=== PATIENT | male | born 1980 | race Caucasian/White ===

== ENCOUNTER 2016-04-07 23:34 | Emergency (ER) | payer SELFPAY ==
[~2016-04-07] VITALS: Ht 172.7 cm; Wt 83.9 kg
[~2016-04-07 23:34] MED LIST: PENICILLIN; VICODINE
[2016-04-07 23:52] VITALS: BP 140/88
--- NOTE | 2016-04-08 00:07 | NUR ---
PT TAKEN TO BED 5
--- NOTE | 2016-04-08 00:28 | NUR ---
36Y/M PATIENT BIB FAMILY TO ED WITH C/O TOOTHACHE X1HR. PATIENT STATES NAUSEA DENIES V/D; SKIN IS PINK/WARM/DRY; AAOX4 WITH EVEN AND STEADY GAIT; LUNGS CLEAR BL; HR EVEN AND REGULAR; PT DENIES ANY FEVER, CP, SOB, OR COUGH AT THIS TIME; PATIENT STATES PAIN OF 10/10 AT THIS TIME; VSS; PATIENT POSITIONED FOR COMFORT; HOB ELEVATED; BEDRAILS UP X2; BED DOWN. ER MD MADE AWARE OF PT STATUS.
[2016-04-08] MEDS ORDERED: ACETAMINOPHEN/CODEINE 300/30MG 1 TAB PO ONE (00:55)
[2016-04-08] MEDS ORDERED: AMOXICILLIN 500 MG CAP PO ONE (00:55)
[2016-04-08 01:12] VITALS: BP 137/77
--- NOTE | 2016-04-08 01:12 | NUR ---
Patient discharged with v/s stable. Written and verbal after care instructions given and explained. Patient alert, oriented and verbalized understanding of instructions. Ambulatory with steady gait. All questions addressed prior to discharge. ID band removed. Patient advised to follow up with PMD. Rx of Amoxicillin and Tylenol #3 given. Patient educated on indication of medication including possible reaction and side effects. Opportunity to ask questions provided and answered.
== END 2016-04-08 01:12 | disposition home or self-care (01) ==
LOC: MED 23:34 → EDSEX 23:34 → MED 04-08 01:12
DX: K04.7 Periapical abscess without sinus (principal); R03.0 Elevated blood-pressure reading, without diagnosis of hypertension; F17.210 Nicotine dependence, cigarettes, uncomplicated; Z88.8 Allergy status to other drugs, medicaments and biological substances

== ENCOUNTER 2016-04-18 08:52 | Emergency (ER) | payer SELFPAY ==
[~2016-04-18] VITALS: Ht 172.7 cm; Wt 81.6 kg
[2016-04-18 09:00] VITALS: BP 130/73
[2016-04-18] MEDS ORDERED: ONDANSETRON 4 MG ODT PO ONE (09:10)
[2016-04-18] MEDS ORDERED: KETOROLAC 60 MG/2 ML VIAL IM ONE (09:10)
--- NOTE | 2016-04-18 09:14 | NUR ---
PT STATES NECK PAIN WITH NAUSEA . DENIES V/D; SKIN IS PINK/WARM/DRY; AAOX4 WITH EVEN AND STEADY GAIT; LUNGS CLEAR BL; HR EVEN AND REGULAR; PT DENIES ANY FEVER, CP, SOB, OR COUGH AT THIS TIME; PATIENT STATES PAIN OF 7/10 AT THIS TIME; VSS; PATIENT POSITIONED FOR COMFORT; HOB ELEVATED; BEDRAILS UP X2; BED DOWN. ER DR. KELLER AT BEDSIDE.
--- NOTE | 2016-04-18 09:20 | NUR ---
PATIENT OFFERED TORIDOL INJECTION BY DR KELLER, PATIENT DECLINED STATING HE DID NOT WANT A SHOT
[2016-04-18 09:27] VITALS: BP 130/73
--- NOTE | 2016-04-18 09:28 | NUR ---
Patient discharged with v/s stable. Written and verbal after care instructions given and explained. Patient alert, oriented and verbalized understanding of instructions. Ambulatory with steady gait. All questions addressed prior to discharge. ID band removed. Patient advised to follow up with PMD. Rx of ZOFRAN AND MOTRIN given. Patient educated on indication of medication including possible reaction and side effects. Opportunity to ask questions provided and answered.
== END 2016-04-18 09:28 | disposition home or self-care (01) ==
LOC: MED 08:58
DX: I88.9 Nonspecific lymphadenitis, unspecified (principal); R11.2 Nausea with vomiting, unspecified; F17.200 Nicotine dependence, unspecified, uncomplicated; Z88.8 Allergy status to other drugs, medicaments and biological substances
CPT/HCPCS: 99283; S0119

== ENCOUNTER 2016-04-30 08:52 | Emergency (ER) | payer SELFPAY ==
[~2016-04-30] VITALS: Ht 172.7 cm; Wt 81.6 kg
[2016-04-30 09:18] VITALS: BP 122/82
--- NOTE | 2016-04-30 09:25 | NUR ---
PT AMBULTED TO BED 8
--- NOTE | 2016-04-30 09:33 | NUR ---
36/M TO ED WITH C/O LEFT SIDED RIB PAIN STARTING LAST NIGHT. DENIES TRAUMA. STATES PAIN INCREASED UPON INSPIRATION. PAIN 5/10. LUNGS CLEAR BILAT. HR EVEN AND REGULAR. AAOX4. VSS. NO SIGNS OF DISTRESS.
--- NOTE | 2016-04-30 10:30 | NUR ---
Patient appears to be resting comfortably in bed. Vital Signs within normal limits. Respirations even and unlabored.
[2016-04-30 11:26] VITALS: BP 122/82
== END 2016-04-30 11:27 | disposition home or self-care (01) ==
LOC: MED 08:54
DX: R07.89 Other chest pain (principal); R05 Cough; Z88.8 Allergy status to other drugs, medicaments and biological substances; Z90.49 Acquired absence of other specified parts of digestive tract
CPT/HCPCS: 71010; 99283; Q0092

== ENCOUNTER 2017-02-19 07:43 | Emergency (ER) | payer SELFPAY ==
[~2017-02-19] VITALS: Ht 172.7 cm; Wt 78.9 kg
[2017-02-19 07:48] VITALS: BP 120/75
--- NOTE | 2017-02-19 07:58 | NUR ---
36m bib self with c/o 6/10 "sharp" non radiating bl lower back pain x yesterday; pt denies any injury or trauma; pt sts hx of chronic back pain. Pt also reports of hematuria that began 2 wks ago but denies currently at this time; Pt denies any n/v/d, abd pain, or dysuria. Pt is aox4, rr are even and unlabored. Pt positioned to comfort, bed down. Nad. Awaiting primary er md blum. Will continue to monitor.
[2017-02-19] MEDS ORDERED: HYDROcodone/APAP 5/325 MG 1 TAB TAB PO ONE ×2 (08:25→10:25)
--- NOTE | 2017-02-19 08:44 | NUR ---
pt to ct via w/c accompanied by radiology supervisor
--- NOTE | 2017-02-19 08:54 | NUR ---
returned from ct via wheelchair
[2017-02-19 09:10] LABS: APPEARANCE,URINE CLEAR (CLEAR); BILIRUBIN,URINE NEGATIVE (NEGATIVE); BLOOD, URINE 3+ (NEGATIVE); COLOR,URINE YELLOW (YELLOW); LEUKOCYTE ESTERASE ,URINE NEGATIVE (NEGATIVE); NITRITE, URINE NEGATIVE (NEGATIVE); UGLUCOSE NEGATIVE (NEGATIVE)
[2017-02-19 09:31] LABS: RBC,URINE 20-50 /HPF (0-5); WBC,URINE 0-5 (RARE) /HPF (0-5)
--- NOTE | 2017-02-19 10:24 | NUR ---
er md rosenberg by bedside updating pt on plan of care
[2017-02-19 11:00] VITALS: BP 108/76
--- NOTE | 2017-02-19 11:00 | NUR ---
Patient discharged with v/s stable. Written and verbal after care instructions given and explained. Patient alert, oriented and verbalized understanding of instructions. Ambulatory with steady gait. All questions addressed prior to discharge. ID band removed. Patient advised to follow up with PMD. Rx of [place] 5 and Flomax given. Patient educated on indication of medication including possible reaction and side effects. Opportunity to ask questions provided and answered.
[2017-02-20] MEDS ORDERED: TAMSULOSIN 0.4 MG CAP PO SCH (08:30)
== END 2017-02-19 11:00 | disposition home or self-care (01) ==
LOC: MED 07:43
DX: N20.0 Calculus of kidney (principal); F17.200 Nicotine dependence, unspecified, uncomplicated; F12.10 Cannabis abuse, uncomplicated; Z71.6 Tobacco abuse counseling; Z88.6 Allergy status to analgesic agent
CPT/HCPCS: 74176; 81001; 87086; 99285; J7030

== ENCOUNTER 2017-02-26 06:55 | Emergency (ER) | payer SELFPAY ==
[~2017-02-26] VITALS: Ht 172.7 cm; Wt 76.4 kg
[2017-02-26 07:03] VITALS: BP 107/77
--- NOTE | 2017-02-26 10:42 | NUR ---
LEFT WITHOUT BEING SEEN
== END 2017-02-26 10:42 | disposition left against medical advice (07) ==
LOC: MED 06:55
DX: R10.9 Unspecified abdominal pain (principal); Z53.21 Procedure and treatment not carried out due to patient leaving prior to being seen by health care provider

== ENCOUNTER 2017-04-25 07:57 | Emergency (ER) | payer SELFPAY ==
[~2017-04-25] VITALS: Ht 172.7 cm; Wt 78.0 kg
[2017-04-25 08:02] VITALS: BP 131/75
[2017-04-25] MEDS ORDERED: NACL 0.9% 1,000 ML IV SCH (08:18)
[2017-04-25] MEDS ORDERED: KETOROLAC 30 MG/ML VIAL IVP ONE (08:20)
[2017-04-25] MEDS ORDERED: HYDROmorphone PFS 2 MG/ML SYR IVP ONE (08:20)
--- NOTE | 2017-04-25 08:23 | NUR ---
PATIENT PRESENTS TO ED WITH LOWER BACK PAIN WITH URGENCY FREQUENCY X 2 DAYS . PT STATES ADDS WATERY STOOL AND NAUSEA YESTERDAY; SKIN IS PINK/WARM/DRY; AAOX4 WITH EVEN AND STEADY GAIT; LUNGS CLEAR BL; HR EVEN AND REGULAR; PT DENIES ANY FEVER, CP, SOB, OR COUGH AT THIS TIME; PATIENT STATES PAIN OF 7/10 AT THIS TIME; VSS; PATIENT POSITIONED FOR COMFORT; HOB ELEVATED; BEDRAILS UP X2; BED DOWN. ER MD MADE AWARE OF PT STATUS.
--- NOTE | 2017-04-25 08:35 | NUR ---
INSTRUCTED PT TO REMAIN IN [place] IF FEELING DIZZY OR SLEEPY S/P ANALGESIC INFUSION. PT TO CT SCAN VIA [place]---NO S/S RESP DISTRESS NOTED WITH FULL CLEAR SPEECH NO ACCESSORY MUSCLE USE NOTED
--- NOTE | 2017-04-25 08:47 | NUR ---
RETURNED FROM CT VIA [facility]--AWAKE ADMITS PAIN HAS DECREASED TO 4/10 AT THIS TIME.
[2017-04-25 08:59] LABS: APPEARANCE,URINE CLEAR (CLEAR); BILIRUBIN,URINE NEGATIVE (NEGATIVE); BLOOD, URINE NEGATIVE (NEGATIVE); COLOR,URINE YELLOW (YELLOW); LEUKOCYTE ESTERASE ,URINE NEGATIVE (NEGATIVE); NITRITE, URINE NEGATIVE (NEGATIVE); UGLUCOSE NEGATIVE (NEGATIVE)
[2017-04-25 09:05] LABS: HEMOGLOBIN 15.9 g/dL (12.0-18.0); MEAN CORPUSCULAR HEMOGLOBIN 30 pg (27-31); MEAN CORPUSCULAR HGB CONC 33 g/dL (33-37)
[2017-04-25 09:08] LABS: HEMATOCRIT 47.6 % (36-52); MEAN CORPUSCULAR VOLUME 91 fL (80-94); PLATELET COUNT (AUTO) 338 K/uL (140-450); RED BLOOD CELL COUNT(AUTO) 5.23 MIL/uL (4.20-6.10); RED CELL DISTRIBUTION WIDTH 12.4 % (11.6-13.7); WHITE BLOOD COUNT (AUTO) 8.6 K/uL (4.8-10.8)
[2017-04-25 09:12] LABS: ANION GAP 11.7 (8-16); CREATININE 0.9 mg/dL (0.7-1.3); POTASSIUM 3.7 mmol/L (3.5-5.1)
[2017-04-25 09:18] LABS: ALBUMIN 4.2 g/dL (3.4-5.0); TOTAL BILIRUBIN 0.4 mg/dL (0.0-1.0)
[2017-04-25 09:20] LABS: EOSINOPHILS % (MANUAL) 1 % (0-4); LYMPHOCYTES % (MANUAL) 36 % (20-46); MONOCYTES % (MANUAL) 6 % (5-12)
[2017-04-25] MEDS ORDERED: GLYCOPYRROLATE 0.2 MG/ML VIAL IV SCH (09:40)
[2017-04-25 10:09] VITALS: BP 112/66
--- NOTE | 2017-04-25 10:09 | NUR ---
Patient discharged with v/s stable. Written and verbal after care instructions given and explained. Patient alert, oriented and verbalized understanding of instructions. Ambulatory with steady gait. All questions addressed prior to discharge. ID band removed. Patient advised to follow up with PMD. Rx of FLOMAX, MOTRIN & LEVSIN given. Patient educated on indication of medication including possible reaction and side effects. Opportunity to ask questions provided and answered.
== END 2017-04-25 10:09 | disposition home or self-care (01) ==
LOC: MED 07:57
DX: N20.9 Urinary calculus, unspecified (principal); Z88.8 Allergy status to other drugs, medicaments and biological substances
CPT/HCPCS: 36415; 74176; 80053; 81003; 82150; 83690; 85025; 96361; 96374; 96375; 99285; J1170; J1885; J3490; J7030

== ENCOUNTER 2017-05-24 17:37 | Emergency (ER) | payer SELFPAY ==
[~2017-05-24] VITALS: Ht 172.7 cm; Wt 77.6 kg
[2017-05-24 17:50] VITALS: BP 125/74
[2017-05-24 18:15] VITALS: BP 125/74
--- NOTE | 2017-05-24 18:15 | NUR ---
Pt presents to ED with Left testicular pain 10/10 for x3 hrs. Testes are even in length at this time. c/o nausea without vomiting. Pt states no trauma to testicles and unsure how/why testicles are in pain. ER MD aware. VSS. Continue to monitor.
--- NOTE | 2017-05-24 19:10 | NUR ---
RECEIVED REPORT FROM AM ASHLEY CLARKE.
--- NOTE | 2017-05-24 19:15 | NUR ---
ULTRASOUND IN TO SEE PATIENT
[2017-05-24] MEDS ORDERED: KETOROLAC 60 MG/2 ML VIAL IM ONE (20:00)
--- NOTE | 2017-05-24 20:07 | NUR ---
PATIENT ELOPED FROM FACILITY. DISCHARGE INSTRUCTIONS NOT GIVEN TO PATIENT. DR. CAMARILLO NOTIFIED.
[2017-05-24 20:20] LABS: APPEARANCE,URINE CLEAR (CLEAR); BILIRUBIN,URINE NEGATIVE (NEGATIVE); BLOOD, URINE 2+ (NEGATIVE); COLOR,URINE YELLOW (YELLOW); LEUKOCYTE ESTERASE ,URINE NEGATIVE (NEGATIVE); NITRITE, URINE NEGATIVE (NEGATIVE); UGLUCOSE NEGATIVE (NEGATIVE)
[2017-05-24 20:46] LABS: RBC,URINE 3-10 (FEW) /HPF (0-5); WBC,URINE 0-5 (RARE) /HPF (0-5)
[2017-05-28 06:08] LABS: CHLAMYDIA TRACHOMATIS AMP DNA Negative (Negative)
== END 2017-05-24 20:07 | disposition left against medical advice (07) ==
LOC: MED 17:37
DX: N50.812 Left testicular pain (principal); R03.0 Elevated blood-pressure reading, without diagnosis of hypertension; F17.210 Nicotine dependence, cigarettes, uncomplicated; Z88.8 Allergy status to other drugs, medicaments and biological substances
CPT/HCPCS: 36415; 76870; 81001; 87491; 99285; J1885; Q0092

== ENCOUNTER 2019-11-18 10:33 | Emergency (ER) | payer SELFPAY ==
[~2019-11-18] VITALS: Ht 175.3 cm; Wt 81.6 kg
--- NOTE | 2019-11-18 10:36 | NUR ---
PT TAKEN TO BED 05 BY WHEELCHAIR.
[2019-11-18 10:40] VITALS: BP 125/75
--- NOTE | 2019-11-18 10:43 | NUR ---
C/O BACK PAIN X LAST SATURDAY AFTER LIFTING HEAVY OBJECT. PT STATES HE FELT A PULL AND ADMITS TO LIFTING OBJECT INCORRECTLY. PAIN 10/10 IN SEVERITY. PT WHEELCHAIRED TO BED DUE TO INCREASED PAIN WITH WALKING. PT ALERT AND AWAKE. VS STABLE. PMH- CHRONIC BACK PAIN RX- NORCO, IBUPROFEN, ROBAXIN
[2019-11-18] MEDS: KETOROLAC 30 MG/ML VIAL IM ONE (11:13)
--- NOTE | 2019-11-18 11:23 | NUR ---
NADR, PT STATES PAIN 10/04. PT RECIEVING PRESCRIPTION FOR PAIN
[2019-11-18 11:24] VITALS: BP 116/72
--- NOTE | 2019-11-18 11:24 | NUR ---
Patient discharged with v/s stable. Written and verbal after care instructions given and explained. Patient alert, oriented and verbalized understanding of instructions. Ambulatory with steady gait. All questions addressed prior to discharge. ID band removed. Patient advised to follow up with PMD. Rx of PERCOCET, VALIUM AND NARCAN SPRAY given. Patient educated on indication of medication including possible reaction and side effects. Opportunity to ask questions provided and answered. PT INSTRUCTED THAT NARCAN NASAL SPRAY IS PRN FOR OPOID OVERDOSE
== END 2019-11-18 11:24 | disposition home or self-care (01) ==
LOC: MED 10:33
DX: M54.5 Low back pain (principal); Z88.8 Allergy status to other drugs, medicaments and biological substances
CPT/HCPCS: 96372; 99283; J1885

== ENCOUNTER 2020-12-05 13:02 | Emergency (ER) | payer SELFPAY ==
[~2020-12-05] VITALS: Ht 172.7 cm; Wt 79.4 kg
[2020-12-05 13:48] VITALS: BP 133/80
[2020-12-05] MEDS ORDERED: LID5T TP (14:46)
[2020-12-05 15:39] VITALS: BP 133/80
--- NOTE | 2020-12-05 15:39 | NUR ---
Patient discharged with v/s stable. Written and verbal after care instructions given and explained. Patient alert, oriented and verbalized understanding of instructions. Ambulatory with steady gait. All questions addressed prior to discharge. ID band removed. Patient advised to follow up with PMD. Rx of LIDODERM 5% PATCH given. Patient educated on indication of medication including possible reaction and side effects. Opportunity to ask questions provided and answered.
== END 2020-12-05 15:39 | disposition home or self-care (01) ==
LOC: MED 13:02
DX: M54.6 Pain in thoracic spine (principal); J02.9 Acute pharyngitis, unspecified; F17.200 Nicotine dependence, unspecified, uncomplicated; Z79.899 Other long term (current) drug therapy; Z88.8 Allergy status to other drugs, medicaments and biological substances
CPT/HCPCS: 81002; 99283

== ENCOUNTER 2021-03-29 09:47 | Emergency (ER) | payer OTHER ==
[~2021-03-29] VITALS: Ht 172.7 cm; Wt 79.4 kg
[~2021-03-29 09:47] MED LIST changes: +LID5T TP; -PENICILLIN; -VICODINE
[2021-03-29 10:56] VITALS: BP 121/79
--- NOTE | 2021-03-29 10:56 | NUR ---
novel swabbed at this time
[2021-03-29] MEDS ORDERED: PSEU120T22 PO (11:33)
--- NOTE | 2021-03-29 12:10 | NUR ---
pt left without paperwork at this time
[2021-03-29 12:11] VITALS: BP 121/79
== END 2021-03-29 12:11 | disposition home or self-care (01) ==
LOC: MED 09:47
DX: R59.0 Localized enlarged lymph nodes (principal); R09.81 Nasal congestion; R11.0 Nausea; Z20.822 Contact with and (suspected) exposure to COVID-19
CPT/HCPCS: 99283; U0003

== ENCOUNTER 2022-05-30 13:21 | Emergency (ER) | payer OTHER ==
[~2022-05-30] VITALS: Ht 175.3 cm; Wt 83.9 kg
[~2022-05-30 13:21] MED LIST changes: +PSEU120T22 PO
[2022-05-30 13:35] VITALS: BP 132/77
[2022-05-30 14:13] LABS: BASOPHILS # (AUTO) 0.1 K/uL (0.00-0.22); BASOPHILS % (AUTO) 0.7 % (0.0-2.0); EOSINOPHILS # (AUTO) 0.1 K/uL (0-0.4); EOSINOPHILS % (AUTO) 0.7 % (0.0-4.0); HEMOGLOBIN 16.1 g/dL (12.0-18.0); LYMPHOCYTES # (AUTO) 1.7 K/uL (2.0-11.5); MEAN CORPUSCULAR HEMOGLOBIN 31 pg (27-31); MEAN CORPUSCULAR HGB CONC 34 g/dL (33-37); MEAN CORPUSCULAR VOLUME 89.5 fL (80-94); MONOCYTES # (AUTO) 1.3 K/uL (0.8-1.0); MONOCYTES % (AUTO) 7.5 % (1.7-9.3); NEUTROPHILS # (AUTO) 13.9 K/uL (1.8-7.7); NEUTROPHILS % (AUTO) 81.1 % (42.2-75.2); PLATELET COUNT (AUTO) 318 K/uL (140-450); RED BLOOD CELL COUNT(AUTO) 5.25 MIL/uL (4.20-6.10); RED CELL DISTRIBUTION WIDTH 13.8 % (11.6-13.7); WHITE BLOOD COUNT (AUTO) 17.2 K/uL (4.8-10.8)
[2022-05-30 14:34] LABS: APPEARANCE,URINE CLEAR (CLEAR); BILIRUBIN,URINE NEGATIVE (NEGATIVE); BLOOD, URINE 2+ (NEGATIVE); COLOR,URINE YELLOW (YELLOW); LEUKOCYTE ESTERASE ,URINE NEGATIVE (NEGATIVE); NITRITE, URINE NEGATIVE (NEGATIVE); PH,URINE 7.5 (5.0-9.0); UGLUCOSE NEGATIVE (NEGATIVE)
[2022-05-30] MEDS ORDERED: KETOROLAC 30 MG/ML VIAL IVP ONE (14:35)
[2022-05-30] MEDS ORDERED: ONDANSETRON 4 MG/2 ML VIAL IVP ONE (14:35)
[2022-05-30] MEDS ORDERED: NACL 0.9% 1,000 ML IV ONE (14:35)
[2022-05-30 14:54] LABS: RBC,URINE 11-20 (MOD) /HPF (0-5); WBC,URINE 0-5 /HPF (0-5)
[2022-05-30 15:00] LABS: ALBUMIN 4.3 g/dL (3.4-5.0); ANION GAP 13.7 (8-16); CARBON DIOXIDE 25.8 mmol/L (21-32); CREATININE 1.1 mg/dL (0.6-1.3); POTASSIUM 4.5 mmol/L (3.5-5.1); TOTAL BILIRUBIN 0.6 mg/dL (0.0-1.0)
[2022-05-30] MEDS ORDERED: cephALEXin 500 MG CAP PO ONE (15:55)
[2022-05-30] MEDS ORDERED: CEPH-588 PO (16:13)
[2022-05-30] MEDS ORDERED: ACET-5629 PO (16:13)
[2022-05-30] MEDS ORDERED: TAMS0.4C96 PO (16:13)
[2022-05-30] MEDS ORDERED: IBUP-2213 PO (16:13)
[2022-05-30] MEDS: TAMSULOSIN 0.4 MG CAP PO SCH ×2 (16:32→16:42)
[2022-05-30 16:45] VITALS: BP 124/72
--- NOTE | 2022-05-30 16:49 | NUR ---
Patient discharged with v/s stable. Written and verbal after care instructions given and explained. Patient alert, oriented and verbalized understanding of instructions. Ambulatory with steady gait. All questions addressed prior to discharge. ID band removed. Patient advised to follow up with PMD. Rx of KEFLEX, FLOMAX given. Patient educated on indication of medication including possible reaction and side effects. Opportunity to ask questions provided and answered.
== END 2022-05-30 16:45 | disposition home or self-care (01) ==
LOC: MED 13:21
DX: N13.2 Hydronephrosis with renal and ureteral calculous obstruction (principal); R03.0 Elevated blood-pressure reading, without diagnosis of hypertension; F17.210 Nicotine dependence, cigarettes, uncomplicated; F12.90 Cannabis use, unspecified, uncomplicated; Z88.8 Allergy status to other drugs, medicaments and biological substances; Z79.899 Other long term (current) drug therapy
CPT/HCPCS: 36415; 74176; 80053; 81001; 83690; 85025; 96361; 96374; 96375; 99285; J1885; J2405

== ENCOUNTER 2022-09-21 09:50 | Emergency (ER) | payer OTHER ==
[~2022-09-21] VITALS: Ht 175.3 cm; Wt 79.4 kg
[~2022-09-21 09:50] MED LIST changes: +ACET-5629 PO; +CEPH-588 PO; +IBUP-2213 PO; +TAMS0.4C96 PO
[2022-09-21 10:15] VITALS: BP 126/94; PULSE 61; RESP 20; TEMP 98; O2SAT 99
--- NOTE | 2022-09-21 10:41 | NUR ---
Lab at the [facility] drawing pt. 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
[2022-09-21] MEDS ORDERED: NACL 0.9% 1,000 ML IV ONE (10:55)
[2022-09-21] MEDS ORDERED: KETOROLAC 30 MG/ML VIAL IVP ONE ×2 (10:55→12:40)
[2022-09-21 11:01] LABS: BASOPHILS # (AUTO) 0.2 K/uL (0.00-0.22); EOSINOPHILS # (AUTO) 0.2 K/uL (0-0.4); EOSINOPHILS % (AUTO) 2.4 % (0.0-4.0); HEMATOCRIT 49.3 % (36-52); LYMPHOCYTES # (AUTO) 2.7 K/uL (2.0-11.5); LYMPHOCYTES % (AUTO) 31.5 % (20.5-51.1); MEAN CORPUSCULAR HEMOGLOBIN 31 pg (27-31); MEAN CORPUSCULAR HGB CONC 35 g/dL (33-37); MEAN CORPUSCULAR VOLUME 88.3 fL (80-94); MONOCYTES # (AUTO) 0.8 K/uL (0.8-1.0); MONOCYTES % (AUTO) 9.1 % (1.7-9.3); NEUTROPHILS # (AUTO) 4.7 K/uL (1.8-7.7); PLATELET COUNT (AUTO) 311 K/uL (140-450); RED BLOOD CELL COUNT(AUTO) 5.58 MIL/uL (4.20-6.10); RED CELL DISTRIBUTION WIDTH 13.2 % (11.6-13.7); WHITE BLOOD COUNT (AUTO) 8.5 K/uL (4.8-10.8)
[2022-09-21 11:13] LABS: APPEARANCE,URINE CLEAR (CLEAR); BILIRUBIN,URINE NEGATIVE (NEGATIVE); BLOOD, URINE 3+ (NEGATIVE); COLOR,URINE YELLOW (YELLOW); LEUKOCYTE ESTERASE ,URINE NEGATIVE (NEGATIVE); NITRITE, URINE NEGATIVE (NEGATIVE); UGLUCOSE NEGATIVE (NEGATIVE)
[2022-09-21 11:15] LABS: ALBUMIN 4.4 g/dL (3.4-5.0); ANION GAP 14.8 (8-16); CARBON DIOXIDE 27.5 mmol/L (21-32); CREATININE 1.1 mg/dL (0.6-1.3); POTASSIUM 4.3 mmol/L (3.5-5.1); TOTAL BILIRUBIN 0.8 mg/dL (0.0-1.0)
[2022-09-21 11:24] LABS: RBC,URINE 80-100 /HPF (0-5)
--- NOTE | 2022-09-21 11:30 | NUR ---
ULTRASOUND BEING PERFORMED.
[2022-09-21] MEDS ORDERED: CEPH-588 PO (13:18)
[2022-09-21] MEDS ORDERED: IBUP-2213 PO (13:18)
[2022-09-21] MEDS ORDERED: TAMS0.4C96 PO (13:18)
[2022-09-21 13:35] VITALS: BP 98/60; PULSE 61; RESP 18; TEMP 97.6; O2SAT 98
--- NOTE | 2022-09-21 13:35 | NUR ---
Patient discharged with v/s stable. Written and verbal after care instructions given and explained to both the pt and his spouse. Copies of US DUPS provided. Patient alert, oriented and verbalized understanding of instructions. Ambulatory with steady gait. All questions addressed prior to discharge. ID band removed. Patient advised to follow up with PMD. Rx of Keflex, Flomax, Motrin given. Patient educated on indication of medication including possible reaction and side effects. Opportunity to ask questions provided and answered. Pt instructed to return back to the ER if unable to urinate or if condition worsens.
== END 2022-09-21 13:35 | disposition home or self-care (01) ==
LOC: MED 09:50
DX: N20.0 Calculus of kidney (principal); R31.9 Hematuria, unspecified; R10.2 Pelvic and perineal pain; Z88.5 Allergy status to narcotic agent; Z79.899 Other long term (current) drug therapy
CPT/HCPCS: 36415; 76770; 80053; 81001; 83690; 85025; 96361; 96374; 96376; 99285; J1885; J7030; Q0092

== ENCOUNTER 2022-11-26 18:08 | Emergency (ER) | payer OTHER ==
[~2022-11-26] VITALS: Ht 167.6 cm; Wt 84.8 kg
[2022-11-26 19:18] VITALS: BP 129/83; PULSE 69; RESP 16; TEMP 97.3; O2SAT 99
[2022-11-26 19:36] VITALS: BP 114/76; RESP 19
[2022-11-26 19:42] VITALS: PULSE 69
[2022-11-26] MEDS ORDERED: KETOROLAC 30 MG/ML VIAL IVP ONE (19:50)
[2022-11-26] MEDS ORDERED: MORPHINE SULFATE 4 MG/ML SYR IVP ONE (19:50)
[2022-11-26 20:01] LABS: BASOPHILS # (AUTO) 0.2 K/uL (0.00-0.22); EOSINOPHILS # (AUTO) 0.3 K/uL (0-0.4); EOSINOPHILS % (AUTO) 2.7 % (0.0-4.0); HEMATOCRIT 49.5 % (36-52); HEMOGLOBIN 17.1 g/dL (12.0-18.0); LYMPHOCYTES # (AUTO) 3.9 K/uL (2.0-11.5); LYMPHOCYTES % (AUTO) 36.1 % (20.5-51.1); MEAN CORPUSCULAR HEMOGLOBIN 31 pg (27-31); MEAN CORPUSCULAR HGB CONC 35 g/dL (33-37); MEAN CORPUSCULAR VOLUME 88.7 fL (80-94); MONOCYTES # (AUTO) 0.8 K/uL (0.8-1.0); MONOCYTES % (AUTO) 7.7 % (1.7-9.3); NEUTROPHILS # (AUTO) 5.5 K/uL (1.8-7.7); NEUTROPHILS % (AUTO) 51.5 % (42.2-75.2); PLATELET COUNT (AUTO) 315 K/uL (140-450); RED BLOOD CELL COUNT(AUTO) 5.58 MIL/uL (4.20-6.10); RED CELL DISTRIBUTION WIDTH 13.7 % (11.6-13.7); WHITE BLOOD COUNT (AUTO) 10.7 K/uL (4.8-10.8)
[2022-11-26 20:02] VITALS: O2SAT 97
[2022-11-26 20:25] LABS: ALBUMIN 4.3 g/dL (3.4-5.0); ANION GAP 13.3 (8-16); CALCIUM 9.5 mg/dL (8.5-10.1); CARBON DIOXIDE 26.6 mmol/L (21-32); CREATININE 0.9 mg/dL (0.6-1.3); POTASSIUM 3.9 mmol/L (3.5-5.1); TOTAL BILIRUBIN 0.8 mg/dL (0.0-1.0); TOTAL PROTEIN, SERUM 7.3 g/dL (6.4-8.2)
[2022-11-26] MEDS ORDERED: NACL 0.9% 1,000 ML IV ONE (20:25)
[2022-11-26 21:22] LABS: APPEARANCE,URINE CLEAR (CLEAR); BILIRUBIN,URINE NEGATIVE (NEGATIVE); BLOOD, URINE NEGATIVE (NEGATIVE); COLOR,URINE YELLOW (YELLOW); LEUKOCYTE ESTERASE ,URINE NEGATIVE (NEGATIVE); NITRITE, URINE NEGATIVE (NEGATIVE); PROTEIN,URINE NEGATIVE (NEGATIVE); UGLUCOSE NEGATIVE (NEGATIVE); UROBILINOGEN,URINE 0.2 EU/dL (0.2 - 1)
[2022-11-26] MEDS ORDERED: AZIT250T4 PO (22:01)
[2022-11-26] MEDS ORDERED: MELO-176 PO (22:01)
== END 2022-11-26 22:13 | disposition home or self-care (01) ==
LOC: MED 18:08
DX: R07.9 Chest pain, unspecified (principal); R05.9 Cough, unspecified; F17.200 Nicotine dependence, unspecified, uncomplicated; F12.90 Cannabis use, unspecified, uncomplicated; Z79.899 Other long term (current) drug therapy; Z79.2 Long term (current) use of antibiotics; Z79.1 Long term (current) use of non-steroidal anti-inflammatories (NSAID); Z88.8 Allergy status to other drugs, medicaments and biological substances
CPT/HCPCS: 36415; 71045; 80053; 81003; 83880; 84484; 85025; 93005; 96361; 96374; 99285; J1885; J7030; J2270

== ENCOUNTER 2023-01-14 12:10 | Emergency (ER) | payer OTHER ==
[~2023-01-14] VITALS: Ht 175.3 cm; Wt 83.9 kg
[~2023-01-14 12:10] MED LIST changes: +AZIT250T4 PO; +MELO-176 PO
[2023-01-14 12:34] VITALS: BP 127/80; PULSE 77; RESP 15; TEMP 98.6; O2SAT 97
[2023-01-14 14:45] VITALS: O2SAT 97
[2023-01-14 15:12] LABS: BASOPHILS # (AUTO) 0.2 K/uL (0.00-0.22); BASOPHILS % (AUTO) 2.2 % (0.0-2.0); EOSINOPHILS # (AUTO) 0.3 K/uL (0-0.4); EOSINOPHILS % (AUTO) 2.7 % (0.0-4.0); HEMATOCRIT 51.1 % (36-52); HEMOGLOBIN 17.6 g/dL (12.0-18.0); LYMPHOCYTES # (AUTO) 3.6 K/uL (2.0-11.5); LYMPHOCYTES % (AUTO) 35.2 % (20.5-51.1); MEAN CORPUSCULAR HEMOGLOBIN 31 pg (27-31); MEAN CORPUSCULAR HGB CONC 34 g/dL (33-37); MEAN CORPUSCULAR VOLUME 89.3 fL (80-94); MONOCYTES # (AUTO) 0.8 K/uL (0.8-1.0); MONOCYTES % (AUTO) 7.9 % (1.7-9.3); NEUTROPHILS # (AUTO) 5.4 K/uL (1.8-7.7); PLATELET COUNT (AUTO) 328 K/uL (140-450); RED BLOOD CELL COUNT(AUTO) 5.72 MIL/uL (4.20-6.10); RED CELL DISTRIBUTION WIDTH 13.7 % (11.6-13.7); WHITE BLOOD COUNT (AUTO) 10.3 K/uL (4.8-10.8)
[2023-01-14 15:18] LABS: APPEARANCE,URINE CLEAR (CLEAR); BILIRUBIN,URINE NEGATIVE (NEGATIVE); BLOOD, URINE NEGATIVE (NEGATIVE); COLOR,URINE YELLOW (YELLOW); LEUKOCYTE ESTERASE ,URINE NEGATIVE (NEGATIVE); NITRITE, URINE NEGATIVE (NEGATIVE); PROTEIN,URINE NEGATIVE (NEGATIVE); UGLUCOSE NEGATIVE (NEGATIVE); UROBILINOGEN,URINE 0.2 EU/dL (0.2 - 1)
[2023-01-14] MEDS ORDERED: ACET-8905 PO (15:27)
[2023-01-14] MEDS ORDERED: TAMS0.4C96 PO (15:27)
[2023-01-14] MEDS ORDERED: IBUP-2213 PO (15:27)
[2023-01-14 15:33] LABS: ALBUMIN 4.6 g/dL (3.4-5.0); ANION GAP 12.5 (8-16); CALCIUM 9.3 mg/dL (8.5-10.1); CARBON DIOXIDE 29.7 mmol/L (21-32); CREATININE 1.1 mg/dL (0.6-1.3); POTASSIUM 4.2 mmol/L (3.5-5.1); TOTAL BILIRUBIN 1.2 mg/dL (0.0-1.0); TOTAL PROTEIN, SERUM 7.7 g/dL (6.4-8.2)
== END 2023-01-14 15:41 | disposition home or self-care (01) ==
LOC: MED 12:10
DX: N20.0 Calculus of kidney (principal); F17.200 Nicotine dependence, unspecified, uncomplicated; Z90.49 Acquired absence of other specified parts of digestive tract; Z79.899 Other long term (current) drug therapy; Z79.1 Long term (current) use of non-steroidal anti-inflammatories (NSAID); Z79.2 Long term (current) use of antibiotics; Z88.8 Allergy status to other drugs, medicaments and biological substances
CPT/HCPCS: 36415; 80053; 81003; 83690; 85025; 99284

== ENCOUNTER 2023-01-30 10:02 | Emergency (ER) | payer OTHER ==
[~2023-01-30] VITALS: Ht 152.4 cm; Wt 81.6 kg
[~2023-01-30 10:02] MED LIST changes: +ACET-8905 PO
[2023-01-30 10:14] VITALS: BP 109/68; PULSE 72; RESP 18; TEMP 98.8
[2023-01-30 11:07] LABS: BASOPHILS % (AUTO) 0.2 % (0.0-2.0); EOSINOPHILS # (AUTO) 0.2 K/uL (0-0.4); EOSINOPHILS % (AUTO) 2.1 % (0.0-4.0); HEMATOCRIT 51.5 % (36-52); HEMOGLOBIN 17.6 g/dL (12.0-18.0); LYMPHOCYTES # (AUTO) 2.2 K/uL (2.0-11.5); LYMPHOCYTES % (AUTO) 21.6 % (20.5-51.1); MEAN CORPUSCULAR HEMOGLOBIN 31 pg (27-31); MEAN CORPUSCULAR HGB CONC 34 g/dL (33-37); MEAN CORPUSCULAR VOLUME 89.8 fL (80-94); MONOCYTES # (AUTO) 0.9 K/uL (0.8-1.0); NEUTROPHILS # (AUTO) 6.9 K/uL (1.8-7.7); NEUTROPHILS % (AUTO) 67.1 % (42.2-75.2); PLATELET COUNT (AUTO) 325 K/uL (140-450); RED BLOOD CELL COUNT(AUTO) 5.73 MIL/uL (4.20-6.10); RED CELL DISTRIBUTION WIDTH 14.1 % (11.6-13.7); WHITE BLOOD COUNT (AUTO) 10.2 K/uL (4.8-10.8)
[2023-01-30 11:40] LABS: ALANINE AMINOTRANSFERASE 27 U/L (12-78); ALBUMIN 4.7 g/dL (3.4-5.0); ALKALINE PHOSPHATASE 99 U/L (50-136); ASPARTATE AMINOTRANSFERASE 17 U/L (15-37); BILIRUBIN,DIRECT 0.1 mg/dL (0.0-0.3); LIPASE 38 U/L (16-77); TOTAL BILIRUBIN 0.9 mg/dL (0.0-1.0); TOTAL PROTEIN, SERUM 7.8 g/dL (6.4-8.2)
[2023-01-30 11:57] LABS: ANION GAP 12.5 (8-16); CALCIUM 9.5 mg/dL (8.5-10.1); CARBON DIOXIDE 28.9 mmol/L (21-32); CREATININE 1.1 mg/dL (0.6-1.3); POTASSIUM 4.4 mmol/L (3.5-5.1)
[2023-01-30] MEDS ORDERED: OMEP20EC11 PO (12:33)
== END 2023-01-30 13:23 | disposition home or self-care (01) ==
LOC: MED 10:02
DX: R07.9 Chest pain, unspecified (principal); K21.9 Gastro-esophageal reflux disease without esophagitis; F17.210 Nicotine dependence, cigarettes, uncomplicated; Z79.899 Other long term (current) drug therapy; Z79.1 Long term (current) use of non-steroidal anti-inflammatories (NSAID); Z79.2 Long term (current) use of antibiotics; Z88.8 Allergy status to other drugs, medicaments and biological substances
CPT/HCPCS: 36415; 71045; 80048; 80076; 83690; 84484; 85025; 99284

== ENCOUNTER 2023-02-26 09:03 | Emergency (ER) | payer OTHER ==
[~2023-02-26] VITALS: Ht 175.3 cm; Wt 84.8 kg
[~2023-02-26 09:03] MED LIST changes: +OMEP20EC11 PO
[2023-02-26 09:08] VITALS: BP 133/73; PULSE 67; RESP 20; TEMP 97.8; O2SAT 98
[2023-02-26] MEDS ORDERED: KETOROLAC 30 MG/ML VIAL IVP ONE (09:45)
[2023-02-26] MEDS ORDERED: MORPHINE SULFATE 4 MG/ML SYR IVP ONE (09:45)
[2023-02-26 10:08] LABS: BASOPHILS # (AUTO) 0.1 K/uL (0.00-0.22); BASOPHILS % (AUTO) 0.6 % (0.0-2.0); EOSINOPHILS # (AUTO) 0.3 K/uL (0-0.4); EOSINOPHILS % (AUTO) 2.9 % (0.0-4.0); HEMATOCRIT 50.1 % (36-52); HEMOGLOBIN 17.7 g/dL (12.0-18.0); LYMPHOCYTES # (AUTO) 2.7 K/uL (2.0-11.5); LYMPHOCYTES % (AUTO) 31.5 % (20.5-51.1); MEAN CORPUSCULAR HEMOGLOBIN 31 pg (27-31); MEAN CORPUSCULAR HGB CONC 35 g/dL (33-37); MEAN CORPUSCULAR VOLUME 88.7 fL (80-94); MONOCYTES # (AUTO) 0.7 K/uL (0.8-1.0); MONOCYTES % (AUTO) 8.5 % (1.7-9.3); NEUTROPHILS # (AUTO) 4.8 K/uL (1.8-7.7); NEUTROPHILS % (AUTO) 56.5 % (42.2-75.2); PLATELET COUNT (AUTO) 368 K/uL (140-450); RED BLOOD CELL COUNT(AUTO) 5.64 MIL/uL (4.20-6.10); RED CELL DISTRIBUTION WIDTH 13.4 % (11.6-13.7); WHITE BLOOD COUNT (AUTO) 8.6 K/uL (4.8-10.8)
[2023-02-26 10:23] LABS: ANION GAP 11.4 (8-16); CALCIUM 9.5 mg/dL (8.5-10.1); CARBON DIOXIDE 30.1 mmol/L (21-32); CREATININE 1.1 mg/dL (0.6-1.3); POTASSIUM 4.5 mmol/L (3.5-5.1)
[2023-02-26 10:28] LABS: INR 0.9 (0.8-1.2); PROTHROMBIN TIME 9.4 secs (10.8-13.4)
[2023-02-26 10:38] LABS: BILIRUBIN,URINE NEGATIVE (NEGATIVE); BLOOD, URINE 3+ (NEGATIVE); COLOR,URINE YELLOW (YELLOW); LEUKOCYTE ESTERASE ,URINE NEGATIVE (NEGATIVE); NITRITE, URINE NEGATIVE (NEGATIVE); PROTEIN,URINE 1+ (NEGATIVE); UGLUCOSE NEGATIVE (NEGATIVE); UROBILINOGEN,URINE 0.2 EU/dL (0.2 - 1)
[2023-02-26 10:40] LABS: APPEARANCE,URINE SLIGHTLY HAZY (CLEAR)
[2023-02-26 11:30] LABS: BACTERIA,URINE 1+ /HPF (None Seen); RBC,URINE 20-50 /HPF (0-5); SQUAMOUS EPITHELIAL CELL,UR 0-3 (FEW) /LPF (0-3 (FEW)); WBC,URINE 0-5 /HPF (0-5)
[2023-02-26] MEDS ORDERED: ACET-5629 PO (12:00)
[2023-02-26] MEDS ORDERED: NAPR-54 PO (12:00)
[2023-02-26 12:07] VITALS: BP 133/73; PULSE 67; RESP 20; TEMP 97.8; O2SAT 98
== END 2023-02-26 12:06 | disposition home or self-care (01) ==
LOC: MED 09:03
DX: N13.2 Hydronephrosis with renal and ureteral calculous obstruction (principal); Z79.899 Other long term (current) drug therapy; Z79.2 Long term (current) use of antibiotics; Z79.1 Long term (current) use of non-steroidal anti-inflammatories (NSAID); Z88.8 Allergy status to other drugs, medicaments and biological substances
CPT/HCPCS: 36415; 74176; 80048; 81001; 85025; 85610; 85730; 87086; 96374; 96375; 99285; J1885; J2270

== ENCOUNTER 2023-03-05 10:39 | Emergency (ER) | payer OTHER ==
[~2023-03-05] VITALS: Ht 167.6 cm; Wt 59.0 kg
[~2023-03-05 10:39] MED LIST changes: +NAPR-54 PO
[2023-03-05 10:55] VITALS: BP 112/79; PULSE 73; RESP 18; TEMP 98; O2SAT 98
[2023-03-05] MEDS ORDERED: KETOROLAC 60 MG/2 ML VIAL IM ONE (11:10)
[2023-03-05] MEDS ORDERED: ACET-5629 PO (11:16)
== END 2023-03-05 11:29 | disposition home or self-care (01) ==
LOC: MED 10:39
DX: N20.0 Calculus of kidney (principal); Z79.899 Other long term (current) drug therapy; Z79.1 Long term (current) use of non-steroidal anti-inflammatories (NSAID); Z79.2 Long term (current) use of antibiotics; Z88.8 Allergy status to other drugs, medicaments and biological substances
CPT/HCPCS: 99283

== ENCOUNTER 2023-03-13 12:04 | Emergency (ER) | payer OTHER ==
[~2023-03-13] VITALS: Ht 167.6 cm; Wt 68.0 kg
[2023-03-13 12:24] VITALS: BP 113/86; PULSE 89; RESP 18; TEMP 97; O2SAT 98
[2023-03-13 14:12] LABS: BASOPHILS # (AUTO) 0.2 K/uL (0.00-0.22); BASOPHILS % (AUTO) 1.8 % (0.0-2.0); EOSINOPHILS # (AUTO) 0.2 K/uL (0-0.4); EOSINOPHILS % (AUTO) 2.2 % (0.0-4.0); HEMATOCRIT 49.6 % (36-52); HEMOGLOBIN 17.3 g/dL (12.0-18.0); LYMPHOCYTES # (AUTO) 2.6 K/uL (2.0-11.5); LYMPHOCYTES % (AUTO) 26.5 % (20.5-51.1); MEAN CORPUSCULAR HEMOGLOBIN 31 pg (27-31); MEAN CORPUSCULAR HGB CONC 35 g/dL (33-37); MONOCYTES # (AUTO) 0.7 K/uL (0.8-1.0); MONOCYTES % (AUTO) 6.7 % (1.7-9.3); NEUTROPHILS # (AUTO) 6.1 K/uL (1.8-7.7); NEUTROPHILS % (AUTO) 62.8 % (42.2-75.2); PLATELET COUNT (AUTO) 363 K/uL (140-450); RED BLOOD CELL COUNT(AUTO) 5.57 MIL/uL (4.20-6.10); RED CELL DISTRIBUTION WIDTH 13.2 % (11.6-13.7); WHITE BLOOD COUNT (AUTO) 9.7 K/uL (4.8-10.8)
[2023-03-13 14:37] LABS: GLUCOSE 100 mg/dL (74-106)
[2023-03-13 14:42] LABS: CHLORIDE 101 mmol/L (98-107); SODIUM SERUM 138 mmol/L (136-145)
[2023-03-13] MEDS ORDERED: KETOROLAC 30 MG/ML VIAL IM SCH (14:52)
[2023-03-13] MEDS ORDERED: KETOROLAC 30 MG/ML VIAL IM STA (14:52)
[2023-03-13 15:08] LABS: ALANINE AMINOTRANSFERASE 75 U/L (12-78); ALBUMIN 4.2 g/dL (3.4-5.0); ALKALINE PHOSPHATASE 93 U/L (50-136); ASPARTATE AMINOTRANSFERASE 33 U/L (15-37); CALCIUM 9.3 mg/dL (8.5-10.1); CREATININE 1.1 mg/dL (0.6-1.3); GFR ARICAN-AMERICAN 94 mL/min (>90); GFR NON ARICAN-AMERICAN 78 mL/min (>90); LIPASE 38 U/L (16-77); TOTAL BILIRUBIN 0.9 mg/dL (0.0-1.0); TOTAL PROTEIN, SERUM 8.6 g/dL (6.4-8.2); UREA NITROGEN, BLOOD 13 mg/dL (7-18)
[2023-03-13 15:09] LABS: CARBON DIOXIDE 29.2 mmol/L (21-32); POTASSIUM 4.2 mmol/L (3.5-5.1)
[2023-03-13] MEDS ORDERED: ACET-8905 PO (15:35)
== END 2023-03-13 15:41 | disposition home or self-care (01) ==
LOC: MED 12:04
DX: R07.89 Other chest pain (principal); R51.9 Headache, unspecified; R03.0 Elevated blood-pressure reading, without diagnosis of hypertension; Z76.0 Encounter for issue of repeat prescription; Z79.899 Other long term (current) drug therapy
CPT/HCPCS: 36415; 71045; 80053; 83690; 84484; 85025; 93005; 96372; 99285; J1885

== ENCOUNTER 2023-03-15 14:35 | Emergency (ER) | payer OTHER ==
[~2023-03-15] VITALS: Ht 167.6 cm; Wt 72.6 kg
[2023-03-15 15:02] VITALS: BP 115/73; PULSE 74; RESP 18; TEMP 98; O2SAT 98
[2023-03-15] MEDS ORDERED: NACL 0.9% 1,000 ML IV SCH (15:25)
[2023-03-15] MEDS ORDERED: KETOROLAC 30 MG/ML VIAL IVP ONE (15:45)
[2023-03-15 15:47] LABS: APPEARANCE,URINE CLEAR (CLEAR); BILIRUBIN,URINE NEGATIVE (NEGATIVE); BLOOD, URINE 2+ (NEGATIVE); COLOR,URINE YELLOW (YELLOW); LEUKOCYTE ESTERASE ,URINE NEGATIVE (NEGATIVE); NITRITE, URINE NEGATIVE (NEGATIVE); PROTEIN,URINE NEGATIVE (NEGATIVE); UGLUCOSE NEGATIVE (NEGATIVE); UROBILINOGEN,URINE 0.2 EU/dL (0.2 - 1)
[2023-03-15 15:50] LABS: BASOPHILS % (AUTO) 0.5 % (0.0-2.0); EOSINOPHILS # (AUTO) 0.4 K/uL (0-0.4); EOSINOPHILS % (AUTO) 3.6 % (0.0-4.0); HEMOGLOBIN 16.5 g/dL (12.0-18.0); LYMPHOCYTES # (AUTO) 3.7 K/uL (2.0-11.5); LYMPHOCYTES % (AUTO) 35.4 % (20.5-51.1); MEAN CORPUSCULAR HEMOGLOBIN 31 pg (27-31); MEAN CORPUSCULAR HGB CONC 36 g/dL (33-37); MEAN CORPUSCULAR VOLUME 87.9 fL (80-94); MONOCYTES # (AUTO) 0.7 K/uL (0.8-1.0); MONOCYTES % (AUTO) 7.1 % (1.7-9.3); NEUTROPHILS # (AUTO) 5.5 K/uL (1.8-7.7); NEUTROPHILS % (AUTO) 53.4 % (42.2-75.2); PLATELET COUNT (AUTO) 340 K/uL (140-450); RED BLOOD CELL COUNT(AUTO) 5.23 MIL/uL (4.20-6.10); RED CELL DISTRIBUTION WIDTH 13.1 % (11.6-13.7); WHITE BLOOD COUNT (AUTO) 10.4 K/uL (4.8-10.8)
[2023-03-15 15:52] LABS: BACTERIA,URINE None Seen /HPF (None Seen); MUCUS,URINE None Seen /LPF (None Seen); RBC,URINE 0-5 /HPF (0-5); SQUAMOUS EPITHELIAL CELL,UR 0-3 (FEW) /LPF (0-3 (FEW)); TRICHOMONAS,URINE None Seen /HPF (None Seen); WBC,URINE 0-5 /HPF (0-5); YEAST,URINE None Seen /HPF (None Seen)
[2023-03-15 16:03] LABS: ANION GAP 13.3 (8-16); CARBON DIOXIDE 28.3 mmol/L (21-32); POTASSIUM 3.6 mmol/L (3.5-5.1)
[2023-03-15 16:10] LABS: BILIRUBIN,DIRECT 0.1 mg/dL (0.0-0.3); TOTAL BILIRUBIN 0.5 mg/dL (0.0-1.0); TOTAL PROTEIN, SERUM 8.1 g/dL (6.4-8.2)
[2023-03-15 16:28] VITALS: BP 114/69; PULSE 62; RESP 18; TEMP 98; O2SAT 98
[2023-03-15] MEDS ORDERED: KETOROLAC 30 MG/ML VIAL ONE (16:51)
[2023-03-15] MEDS ORDERED: ONDA8TAB87 PO (17:56)
== END 2023-03-15 18:06 | disposition home or self-care (01) ==
LOC: MED 14:35
DX: N20.0 Calculus of kidney (principal); Z79.899 Other long term (current) drug therapy
CPT/HCPCS: 36415; 74176; 80048; 80076; 81001; 83690; 85025; 96360; 99284; J7030; J1885

== ENCOUNTER 2023-05-20 06:15 | Emergency (ER) | payer OTHER ==
[~2023-05-20] VITALS: Ht 175.3 cm; Wt 83.9 kg
[~2023-05-20 06:15] MED LIST changes: +ONDA8TAB87 PO
[2023-05-20 06:25] VITALS: BP 106/70; PULSE 69; RESP 18; TEMP 97.8; O2SAT 98
[2023-05-20 07:13] LABS: BASOPHILS # (AUTO) 0.2 K/uL (0.00-0.22); BASOPHILS % (AUTO) 2.2 % (0.0-2.0); EOSINOPHILS # (AUTO) 0.5 K/uL (0-0.4); EOSINOPHILS % (AUTO) 5.3 % (0.0-4.0); HEMATOCRIT 48.4 % (36-52); HEMOGLOBIN 16.8 g/dL (12.0-18.0); LYMPHOCYTES # (AUTO) 3.5 K/uL (2.0-11.5); LYMPHOCYTES % (AUTO) 34.3 % (20.5-51.1); MEAN CORPUSCULAR HEMOGLOBIN 31 pg (27-31); MEAN CORPUSCULAR HGB CONC 35 g/dL (33-37); MEAN CORPUSCULAR VOLUME 88.8 fL (80-94); MONOCYTES # (AUTO) 0.9 K/uL (0.8-1.0); MONOCYTES % (AUTO) 8.8 % (1.7-9.3); NEUTROPHILS % (AUTO) 49.4 % (42.2-75.2); PLATELET COUNT (AUTO) 340 K/uL (140-450); RED BLOOD CELL COUNT(AUTO) 5.45 MIL/uL (4.20-6.10); RED CELL DISTRIBUTION WIDTH 14.1 % (11.6-13.7); WHITE BLOOD COUNT (AUTO) 10.2 K/uL (4.8-10.8)
[2023-05-20 07:17] VITALS: O2SAT 98
[2023-05-20 07:23] LABS: ANION GAP 12.1 (8-16); CALCIUM 8.8 mg/dL (8.5-10.1); CARBON DIOXIDE 27.9 mmol/L (21-32)
[2023-05-20 07:30] LABS: ALBUMIN 4.1 g/dL (3.4-5.0); BILIRUBIN,DIRECT 0.1 mg/dL (0.0-0.3); TOTAL BILIRUBIN 0.6 mg/dL (0.0-1.0); TOTAL PROTEIN, SERUM 6.9 g/dL (6.4-8.2)
[2023-05-20 07:50] VITALS: BP 106/70; PULSE 69; RESP 18; TEMP 97.8; O2SAT 98
== END 2023-05-20 07:50 | disposition home or self-care (01) ==
LOC: MED 06:15
DX: N20.0 Calculus of kidney (principal); Z90.49 Acquired absence of other specified parts of digestive tract; Z79.899 Other long term (current) drug therapy; Z88.8 Allergy status to other drugs, medicaments and biological substances
CPT/HCPCS: 36415; 80048; 80076; 83690; 85025; 99284

== ENCOUNTER 2023-08-23 10:07 | Emergency (ER) | payer OTHER ==
[~2023-08-23] VITALS: Ht 175.3 cm; Wt 83.9 kg
[~2023-08-23 10:07] MED LIST changes: +NAPR-337 PO; -NAPR-54 PO
[2023-08-23 10:24] VITALS: BP 136/93; PULSE 60; RESP 18; TEMP 97.8; O2SAT 97
[2023-08-23 11:03] LABS: BASOPHILS # (AUTO) 0.2 K/uL (0.00-0.22); BASOPHILS % (AUTO) 2.1 % (0.0-2.0); EOSINOPHILS # (AUTO) 0.2 K/uL (0-0.4); EOSINOPHILS % (AUTO) 2.8 % (0.0-4.0); HEMATOCRIT 48.1 % (36-52); HEMOGLOBIN 16.8 g/dL (12.0-18.0); LYMPHOCYTES # (AUTO) 2.6 K/uL (2.0-11.5); LYMPHOCYTES % (AUTO) 33.6 % (20.5-51.1); MEAN CORPUSCULAR HEMOGLOBIN 31 pg (27-31); MEAN CORPUSCULAR HGB CONC 35 g/dL (33-37); MEAN CORPUSCULAR VOLUME 88.4 fL (80-94); MONOCYTES # (AUTO) 0.7 K/uL (0.8-1.0); MONOCYTES % (AUTO) 8.5 % (1.7-9.3); NEUTROPHILS # (AUTO) 4.1 K/uL (1.8-7.7); PLATELET COUNT (AUTO) 340 K/uL (140-450); RED BLOOD CELL COUNT(AUTO) 5.44 MIL/uL (4.20-6.10); RED CELL DISTRIBUTION WIDTH 13.7 % (11.6-13.7); WHITE BLOOD COUNT (AUTO) 7.8 K/uL (4.8-10.8)
[2023-08-23 11:47] LABS: ANION GAP 14.2 (8-16); CALCIUM 8.9 mg/dL (8.5-10.1); CARBON DIOXIDE 25.8 mmol/L (21-32)
[2023-08-23 11:55] LABS: ALBUMIN 4.3 g/dL (3.4-5.0); BILIRUBIN,DIRECT 0.2 mg/dL (0.0-0.3); TOTAL BILIRUBIN 1.1 mg/dL (0.0-1.0); TOTAL PROTEIN, SERUM 7.2 g/dL (6.4-8.2)
[2023-08-23] MEDS ORDERED: HYDROcodone/APAP 10/325 MG 1 TAB TAB ONE (12:41)
[2023-08-23] MEDS: HYDROcodone/APAP 10/325 MG 1 TAB TAB PO ONE (12:44)
[2023-08-23] MEDS ORDERED: HYDR-5071 PO (13:07)
[2023-08-23 13:32] VITALS: BP 117/70; PULSE 60; RESP 18; TEMP 97.8; O2SAT 97
== END 2023-08-23 13:19 | disposition home or self-care (01) ==
LOC: MED 10:07
DX: N20.0 Calculus of kidney (principal); R03.0 Elevated blood-pressure reading, without diagnosis of hypertension; Z88.5 Allergy status to narcotic agent; Z79.899 Other long term (current) drug therapy; Z79.1 Long term (current) use of non-steroidal anti-inflammatories (NSAID); Z79.2 Long term (current) use of antibiotics
CPT/HCPCS: 36415; 80048; 80076; 81002; 83690; 85025; 99285

== ENCOUNTER 2023-09-12 13:15 | Emergency (ER) | payer OTHER ==
[~2023-09-12] VITALS: Ht 172.7 cm; Wt 83.9 kg
[~2023-09-12 13:15] MED LIST changes: +HYDR-5071 PO
[2023-09-12 13:33] VITALS: BP 111/79; PULSE 68; RESP 18; TEMP 98.2; O2SAT 97
[2023-09-12 13:35] VITALS: O2SAT 97
[2023-09-12] MEDS ORDERED: ONDA-188 SL (14:02)
== END 2023-09-12 14:16 | disposition home or self-care (01) ==
LOC: MED 13:15
DX: N20.0 Calculus of kidney (principal); Z98.890 Other specified postprocedural states; Z79.899 Other long term (current) drug therapy; Z88.8 Allergy status to other drugs, medicaments and biological substances
CPT/HCPCS: 99283

== ENCOUNTER 2023-12-06 11:48 | Emergency (ER) | payer OTHER ==
[~2023-12-06] VITALS: Ht 175.3 cm; Wt 87.2 kg
[~2023-12-06 11:48] MED LIST changes: +ONDA-188 SL
[2023-12-06 12:15] VITALS: BP 113/83; PULSE 89; RESP 18; TEMP 98.1; O2SAT 97
[2023-12-06] MEDS ORDERED: IBUP-2218 PO (14:24)
[2023-12-06] MEDS ORDERED: DICL20GE TP (14:24)
[2023-12-06] MEDS ORDERED: GABA300C PO (14:24)
[2023-12-06] MEDS: MORPHINE SULFATE 4 MG/ML SYR IM ONE (14:51)
== END 2023-12-06 14:54 | disposition home or self-care (01) ==
LOC: MED 11:48
DX: N23 Unspecified renal colic (principal); Z79.899 Other long term (current) drug therapy; Z88.8 Allergy status to other drugs, medicaments and biological substances
CPT/HCPCS: 96372; 99283; J2270

== ENCOUNTER 2023-12-13 10:25 | Emergency (ER) | payer OTHER ==
[~2023-12-13] VITALS: Ht 172.7 cm; Wt 86.2 kg
[~2023-12-13 10:25] MED LIST changes: +DICL20GE TP; +GABA300C PO; +IBUP-2218 PO
[2023-12-13 10:32] VITALS: BP 126/79; PULSE 81; RESP 18; TEMP 98.2; O2SAT 99
[2023-12-13 11:20] LABS: BASOPHILS # (AUTO) 0.1 K/uL (0.00-0.22); BASOPHILS % (AUTO) 1.6 % (0.0-2.0); EOSINOPHILS # (AUTO) 0.2 K/uL (0-0.4); EOSINOPHILS % (AUTO) 2.9 % (0.0-4.0); HEMATOCRIT 50.2 % (36-52); HEMOGLOBIN 17.5 g/dL (12.0-18.0); LYMPHOCYTES # (AUTO) 2.3 K/uL (2.0-11.5); LYMPHOCYTES % (AUTO) 30.6 % (20.5-51.1); MEAN CORPUSCULAR HEMOGLOBIN 31 pg (27-31); MEAN CORPUSCULAR HGB CONC 35 g/dL (33-37); MEAN CORPUSCULAR VOLUME 88.5 fL (80-94); MONOCYTES # (AUTO) 0.7 K/uL (0.8-1.0); MONOCYTES % (AUTO) 9.3 % (1.7-9.3); NEUTROPHILS # (AUTO) 4.3 K/uL (1.8-7.7); NEUTROPHILS % (AUTO) 55.6 % (42.2-75.2); PLATELET COUNT (AUTO) 333 K/uL (140-450); RED BLOOD CELL COUNT(AUTO) 5.67 MIL/uL (4.20-6.10); RED CELL DISTRIBUTION WIDTH 13.7 % (11.6-13.7); WHITE BLOOD COUNT (AUTO) 7.6 K/uL (4.8-10.8)
[2023-12-13 11:47] LABS: ALBUMIN 4.2 g/dL (3.4-5.0); ANION GAP 12.1 (8-16); CARBON DIOXIDE 29.3 mmol/L (21-32); CREATININE 1.1 mg/dL (0.6-1.3); POTASSIUM 4.4 mmol/L (3.5-5.1); TOTAL BILIRUBIN 0.7 mg/dL (0.0-1.0); TOTAL PROTEIN, SERUM 7.3 g/dL (6.4-8.2)
[2023-12-13 11:55] LABS: APPEARANCE,URINE CLEAR (CLEAR); BILIRUBIN,URINE NEGATIVE (NEGATIVE); BLOOD, URINE NEGATIVE (NEGATIVE); COLOR,URINE YELLOW (YELLOW); LEUKOCYTE ESTERASE ,URINE NEGATIVE (NEGATIVE); NITRITE, URINE NEGATIVE (NEGATIVE); PROTEIN,URINE NEGATIVE (NEGATIVE); UGLUCOSE NEGATIVE (NEGATIVE); UROBILINOGEN,URINE 0.2 EU/dL (0.2 - 1)
[2023-12-13] MEDS ORDERED: CYCL-711 PO (11:59)
[2023-12-13] MEDS ORDERED: LID5T TP (11:59)
[2023-12-13] MEDS: KETOROLAC 30 MG/ML VIAL IM ONE (12:18)
[2023-12-13] MEDS: LIDOCAINE 5% 1 EA PATCH TP ONE (12:22)
[2023-12-13 12:34] VITALS: BP 121/79; PULSE 79; RESP 18; TEMP 98.2; O2SAT 99
== END 2023-12-13 12:36 | disposition home or self-care (01) ==
LOC: MED 10:25
DX: N23 Unspecified renal colic (principal); Z98.890 Other specified postprocedural states; Z79.899 Other long term (current) drug therapy; Z88.8 Allergy status to other drugs, medicaments and biological substances
CPT/HCPCS: 36415; 80053; 81003; 83690; 85025; 99284; J1885